=== PATIENT | female | born 2000 | race Caucasian/White ===

== ENCOUNTER 2022-06-24 09:49 | Day surgery (SDC) | payer OTHER, SELFPAY ==
[2022-06-24] VITALS (14 sets, daily range): BP systolic 117–143; BP diastolic 76–106; PULSE 91–135; RESP 20; TEMP 36.2–37.1; O2SAT 97–100; BMI 18.6
[2022-06-24 10:15] LABS: Ur HCG Qualitative* Negative (Negative)
[2022-06-24] MEDS: SODIUM CHLORIDE 0.9 % (FLUSH) 10 ML SYRINGE IVF (10:40)
[2022-06-24] MEDS: ETHYL CHLORIDE 1 APPLICATION 1 APPLIC TOPICAL (10:40)
[2022-06-24] MEDS: LACTATED RINGERS 1000 ML 1,000 ML 100 ML IV (10:45)
--- NOTE | 2022-06-24 12:55 | W.ANESCHARGE ---
Anesthesia Charges Start Date/Time Anesthesia Start Date: 06/24/22 Anesthesia Start Time: 12:09 Stop Date/Time Anesthesia Stop Date: 06/24/22 Anesthesia Stop Time: 12:54
--- NOTE | 2022-06-24 13:04 | W.PM.ENTPROC ---
Procedure Note Date of procedure: 06/24/22 Procedure: Preop diagnosis chronic tonsillitis postoperative diagnosis same Procedure adenotonsillectomy Under general endotracheal anesthesia patient was prepped and draped usual fashion. The McIvor mouth gag was inserted the tongue retracted forward. No submucous cleft was noted on inspection or palpation. The right and left tonsil removed a combination of needlepoint and Coblation. The adenoid pad was visualized with a laryngeal mirror it was moderately enlarged and removed with suction cautery. Patient was observed in the operating room no further bleeding was noted. The patient was extubated in the operating room taken recovery in satisfactory condition. Blood loss during procedure was less than 10 mL there were no complications Surgeon: Bartolome Rose MD
[2022-06-24] MEDS: ACETAMINOPHEN 120 MG SUPP.RECT 320 MG PR (13:34)
[2022-06-24] MEDS: IBUPROFEN 100 MG/5 ML SUSP 200 MG PO (13:34)
== END 2022-06-24 14:59 | disposition home or self-care (01) ==
PROVIDERS: Anesthesiology; Visit Provider Otolaryngology
PROC: (CPT 42821; principal; 2022-06-24 11:00)
DX: J35.01 Chronic tonsillitis (principal)
CPT/HCPCS: 42821; 170; 81025; 88304; A9270; J1100; J1170; J2250; J2405; J3010; J7120